=== PATIENT | female | born 2000 | race American Indian/Alaskan Native ===

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

== ENCOUNTER 2020-11-23 00:09 | Emergency (ER) | payer BC, MEDICAID ==
[2020-11-23 02:16] VITALS: BP 137/94
[2020-11-23 03:27] LABS: HCG Qualitative,Urine Negative (Negative)
[2020-11-23 03:31] LABS: Bilirubin,Urine NEG (Negative); Blood,Urine LG (Negative); Color,Urine Yellow (Yellow); Mucus,Urine 1+ /HPF; Protein,Urine <15 mg/dL mg/dL (Negative); Urobilinogen,Urine < 2.0 mg/dL (<2.0)
--- NOTE | 2020-11-23 05:05 | Emergency Department Report ---
ED Female HPI - General Chief complaint: Urogenital-Female Stated complaint: BLOOD IN URINE Source: patient Mode of arrival: Ambulatory Limitations: No Limitations - History of Present Illness Initial comments: Patient is a nulliparous 20-year-old -Citizen Of [place] female with a history of Crohn's disease who presents to the ED with complaint of acute onset persistent hematuria and painful vaginal irritation and dysuria for the last 3 days. Patient states that she just completed a course of oral antibiotics for pelvic abscess wound that she had to undergo I&D procedure for about 2 weeks ago. Patient states that her current symptoms started after she completed taking the antibiotics which she cannot remember the name. Patient states that the symptoms have especially worsened in the last 2 days. Patient denies dizziness, syncope, urinary frequency and urgency, vaginal discharge, abdominal pain, nausea, vomiting, fever, chills or dysuria. MD Complaint: vaginal bleeding, other (Vaginal irritation and pain) -: Sudden, days(s) (4) Location: labia, other (Vaginal) Radiation: non-radiating Severity: moderate Severity scale (0 -10): 4 Quality: sharp, burning Consistency: constant Improves with: none Worsens with: urination Are you Now?: No Associated Symptoms: denies other symptoms, hematuria, rash (Vaginal irritation with pain), other (Patient just completed a course of oral antibiotics for pelvic abscess). denies: vaginal discharge, vaginal bleeding, abdominal pain, nausea/vomiting, fever/chills, headaches, loss of appetite, dysuria, syncope, weakness - Related Data Sexually active: Yes : 0 Para: 0 A: 0 Previous Rx's Medication Instructions Recorded Last Taken Type Ibuprofen [Motrin 600 MG tab] 600 mg PO Q8H PRN #30 tablet 07/18/17 Unknown Rx Fluconazole [Diflucan TAB] 200 mg PO QDAY #2 tablet 11/23/20 Unknown Rx Nystatin Oint [Mycostatin Oint] 1 applicatio TP BID #1 tube 11/23/20 Unknown Rx Allergies Allergy/AdvReac Type Severity Reaction Status Date / Time No Known Allergies Allergy Unverified 07/18/17 04:37 ED Review of Systems ROS: Stated complaint: BLOOD IN URINE Other details as noted in HPI Constitutional: denies: chills, fever Eyes: denies: eye pain, eye discharge, vision change ENT: denies: ear pain, throat pain, congestion Respiratory: denies: cough, shortness of breath, wheezing Cardiovascular: denies: chest pain, palpitations Endocrine: no symptoms reported Gastrointestinal: denies: abdominal pain, nausea, diarrhea Genitourinary: hematuria, other (Vaginal irritation and pain). denies: urgency, dysuria, discharge Musculoskeletal: denies: back pain, joint swelling, arthralgia Skin: rash (Mildly irritated vaginal labia majora). denies: lesions Neurological: denies: headache, weakness, paresthesias Psychiatric: denies: anxiety, depression Hematological/Lymphatic: denies: easy bleeding, easy bruising ED Past Medical Hx - Past Medical History Previous Medical History?: Yes Additional medical history: chron's - Surgical History Past Surgical History?: No - Social History Smoking Status: Never Smoker Substance Use Type: None - Medications Home Medications: Home Medications Medication Instructions Recorded Confirmed Last Taken Type Ibuprofen [Motrin 600 MG tab] 600 mg PO Q8H PRN #30 tablet 07/18/17 Unknown Rx Fluconazole [Diflucan TAB] 200 mg PO QDAY #2 tablet 11/23/20 Unknown Rx Nystatin Oint [Mycostatin Oint] 1 applicatio TP BID #1 tube 11/23/20 Unknown Rx ED Physical Exam - General Limitations: No Limitations General appearance: alert, in no apparent distress - Head Head exam: Present: atraumatic, normocephalic, normal inspection - Eye Eye exam: Present: normal appearance, PERRL, EOMI Pupils: Present: normal accommodation - ENT ENT exam: Present: normal exam, normal orophraynx, mucous membranes moist, TM's normal bilaterally, normal external ear exam - Neck Neck exam: Present: normal inspection, full ROM - Respiratory Respiratory exam: Present: normal lung sounds bilaterally. Absent: respiratory distress, wheezes, rales, rhonchi, chest wall tenderness, accessory muscle use, decreased breath sounds, prolonged expiratory - Cardiovascular Cardiovascular Exam: Present: regular rate, normal rhythm, normal heart sounds. Absent: systolic murmur, diastolic murmur, rubs, gallop - GI/Abdominal GI/Abdominal exam: Present: soft, normal bowel sounds. 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 Absent: tenderness, CVA tenderness (R), CVA tenderness (L), muscle spasm, paraspinal tenderness - Neurological Exam Neurological exam: Present: alert, oriented X3, CN II-XII intact, normal gait, reflexes normal - Psychiatric Psychiatric exam: Present: normal affect, normal mood - Skin Skin exam: Present: warm, dry, intact, normal color. Absent: rash ED Course Vital Signs 11/23/20 11/23/20 02:15 05:15 Temperature 98.3 F Pulse Rate 74 69 Respiratory 20 15 Rate Blood Pressure 137/94 [Right] O2 Sat by Pulse 100 98 Oximetry ED Medical Decision Making - Medical Decision Making This is a nulliparous 20-year-old -Citizen [place] female with a history of Crohn's disease who presents to the ED with complaint of acute onset persistent hematuria and painful vaginal irritation and dysuria for the last 3 days. Patient states that she just completed a course of oral antibiotics for pelvic abscess wound that she had to undergo I&D procedure for about 2 weeks ago. Patient states that her current symptoms started after she completed taking the antibiotics which she cannot remember the name. Patient states that the symptoms have especially worsened in the last 2 days. In the ED, patient is alert and oriented x3 and is not in any distress. Urinalysis is unremarkable. Pelvic exam revealed mildly erythematous and irritated labia majora and clitoral area with thick white cottage cheese appearing vaginal discharge consistent with vaginal candidiasis. It also showed current ongoing menstrual cycle. Patient was therefore discharged home on medications and advised to follow-up with her [employer]UM[employer] MANAGER physician or primary care physician in 7 to 10 days for reevaluation. Patient was advised return to the ED immediately if symptoms get worse. - Differential Diagnosis Carolin vaginitis; UTI; back to vaginosis; menstruation; genital herpes Critical care attestation.: If time is entered above; I have spent that time in minutes in the direct care of this critically ill patient, excluding procedure time. ED Disposition Clinical Impression: Vaginal candidiasis, Vaginal irritation, Menstruation Disposition: TO HOME OR SELFCARE Is pt being admited?: No Does the pt Need Aspirin: No Condition: Stable Instructions: Vaginitis, [id number], Vaginal Yeast Infection, Adult Additional Instructions: Your symptoms are likely due to irritation from recent vaginal yeast infection following oral antibiotics you previously took. Therefore take medication with food, drink plenty of fluids and follow-up with your primary care physician or [employer] MANAGER physician in 7 to 10 days for reevaluation. Return to the ED immediately if symptoms get worse. Prescriptions: Fluconazole [Diflucan TAB] 200 mg PO QDAY #2 tablet Nystatin Oint [Mycostatin Oint] 1 applicatio TP BID #1 tube Referrals: [facility] [Provider Group] - 7-10 days Time of Disposition: 05:05 Print Language: BENGALI
== END 2020-11-23 05:15 | disposition home or self-care (01) ==
LOC: ED 00:09
DX: B37.3 Candidiasis of vulva and vagina (principal); N89.8 Other specified noninflammatory disorders of vagina; R31.9 Hematuria, unspecified; Z79.899 Other long term (current) drug therapy
CPT/HCPCS: 81001; 81025; 99283